=== PATIENT | male | born 1990 | race Caucasian/White ===

== ENCOUNTER → 2017-01-19 | Emergency (ER) | payer SELFPAY ==
[2017-01-19 21:10] VITALS: BP 165/72; PULSE 77; TEMP 98.6; BMI 25.7
--- NOTE | 2017-01-19 21:36 | PDOC ---
History of Present Illness - General History Source: Patient Exam Limitations: No Limitations - History of Present Illness Initial Comments: 01/19/17 21:52 26 year old male with no PMHx presents to the ED with left handed numbness for one day. Patient reports 2 night ago he was drunk and may have slept in an unusual position. He reports the numbness is only localized to his left pinky and fourth digit. He denies any trauma. Denies speech changes, focal weakness. No known allergies. <Cassi Avina - Last Filed: 01/19/17 21:52> - General History Source: Patient, Old Records Exam Limitations: No Limitations <ChazkjShaina - Last Filed: 01/19/17 21:53> - General Chief Complaint: Head/Neck problem Stated Complaint: LEFT HAND NUMBNESS Time Seen by Provider: 01/19/17 21:35 Past History <Cassi Avina - Last Filed: 01/19/17 21:52> - Immunization History Immunization Up to Date: Yes - Psycho/Social/Smoking Cessation Hx Anxiety: No Suicidal Ideation: No Smoking History: Never smoked Have you smoked in the past 12 months: Yes Number of Cigarettes Smoked Daily: 2 If you are a former smoker, when did you quit?: 1 MO AGO 'Breaking Loose' booklet given: 06/20/15 Hx Alcohol Use: No Drug/Substance Use Hx: No Substance Use Type: None <Shaina Glynn - Last Filed: 01/19/17 21:53> - Past Medical History Allergies/Adverse Reactions: Allergies Allergy/AdvReac Type Severity Reaction Status Date / Time No Known Allergies Allergy Verified 01/19/17 21:05 Home Medications: Ambulatory Orders Ciprofloxacin HCl [Cipro] 500 mg PO BID #14 tablet 05/12/16 Ibuprofen [Motrin -] 800 mg PO Q6H #30 tablet 05/12/16 Metronidazole 500 mg PO BID #14 tablet 05/12/16 Review of Systems - Review of Systems Able to Perform ROS?: Yes Comments:: 01/19/17 21:52 GENERAL/CONSTITUTIONAL: No fever or chills. No weakness. HEAD, EYES, EARS, NOSE AND THROAT: No change in vision. No ear pain or discharge. No sore throat. CARDIOVASCULAR: No chest pain or shortness of breath. RESPIRATORY: No cough, wheezing, or hemoptysis. GASTROINTESTINAL: No nausea, vomiting, diarrhea or constipation. GENITOURINARY: No dysuria, frequency, or change in urination. MUSCULOSKELETAL: No joint or muscle swelling or pain. No neck or back pain. SKIN: No rash NEUROLOGIC: (+) left handed numbness. No headache, vertigo, loss of consciousness, or change in strength. ENDOCRINE: No increased thirst. No abnormal weight change. HEMATOLOGIC/LYMPHATIC: No anemia, easy bleeding, or history of blood clots. ALLERGIC/IMMUNOLOGIC: No hives or skin allergy. <Cassi Avina - Last Filed: 01/19/17 21:52> *Physical Exam - Vital Signs Last Vital Signs Temp Pulse Resp BP Pulse Ox 98.6 F 77 18 165/72 99 01/19/17 21:05 01/19/17 21:05 01/19/17 21:01/19/17 21:01/19/17 21:05 - Physical Exam Comments: 01/19/17 21:52 GENERAL: Awake, alert, and fully oriented, in no acute distress HEAD: No signs of trauma EYES: PERRLA, EOMI, sclera anicteric, conjunctiva clear ENT: Auricles normal inspection, hearing grossly normal, nares patent, oropharynx clear without exudates. Moist mucosa NECK: Normal ROM, supple, no lymphadenopathy, JVD, or masses LUNGS: Breath sounds equal, clear to auscultation bilaterally. No wheezes, and no crackles HEART: Regular rate and rhythm, normal S1 and S2, no murmurs, rubs or gallops ABDOMEN: Soft, nontender, normoactive bowel sounds. No guarding, no rebound. No masses EXTREMITIES: Normal range of motion, no edema. No clubbing or cyanosis. No cords, erythema, or tenderness NEUROLOGICAL: Decreased sensation in pinky and fourth digit. Motor exam intact. No paraspinal tenderness. Cranial nerves II through XII grossly intact. Normal speech, normal gait SKIN: Warm, Dry, normal turgor, no rashes or lesions noted. <KailynCassi A - Last Filed: 01/19/17 21:52> - Vital Signs Last Vital Signs Temp Pulse Resp BP Pulse Ox 98.6 F 77 18 165/72 99 01/19/17 21:05 01/19/17 21:05 01/19/17 21:05 01/19/17 21:05 01/19/17 21:05 <Shaina Glynn - Last Filed: 01/19/17 21:53> Medical Decision Making - Medical Decision Making 01/19/17 21:47 26-year-old [id number] male with no significant past medical history presents to the emergency department with decreased sensation in the ulnar nerve distribution of the left hand after sleeping in the same position for an extended period of time Thursday overnight. Most likely diagnosis is cubital tunnel syndrome or an ulnar nerve palsy. Plan: 1. Self-limited and will likely resolve on its own 2. Discharge home 3. Follow-up with PCP 4. Return to the ED if symptoms persist, worsen, or new symptoms arise. <Shaina Glynn - Last Filed: 01/19/17 21:53> *DC/Admit/Observation/Transfer - Attestations Scribe Attestion: 01/19/17 21:53 Documentation prepared by Cassi Avina, acting as medical nurse for Shaina Glynn MD. <Csasi Avina - Last Filed: 01/19/17 21:52> - Discharge Dispostion Admit: No - Attestations Physician Attestion: 01/19/17 21:48 I, Dr. Shaina Glynn, attest that the scribes documentation that appears above has been prepared under my direction and personally reviewed by me in its entirety. I confirmed that the note above accurately reflects all work, treatment, procedures, and medical decision-making performed by me. <Shaina Glynn - Last Filed: 01/19/17 21:53> Diagnosis at time of Disposition: Cubital tunnel syndrome - Discharge Dispostion Disposition: HOME Condition at time of disposition: Stable - Patient Instructions Printed Discharge Instructions: Cubital Tunnel Syndrome Additional Instructions: You should follow-up with her primary care physician. If the symptoms persist, you should see a neurologist or a hand physician. Avoid pressure on the wrist area. You may return to the emergency department if your symptoms persist, worsen, or new symptoms arise.
== END | disposition home or self-care (01) ==
LOC: JER 20:54
DX: G56.22 Lesion of ulnar nerve, left upper limb (principal)
CPT/HCPCS: 99282-25

== ENCOUNTER 2020-10-24 06:26 | Emergency (ER) | payer SELFPAY ==
[2020-10-24 06:45] VITALS: BP 126/82; PULSE 91; TEMP 98.3; BMI 24.4
[2020-10-25 02:08] LABS: SARS-CoV-2 NAA Not Detected (Not Detected)
== END 2020-10-24 08:07 | disposition home or self-care (01) ==
LOC: JER 06:26
DX: R09.81 Nasal congestion (principal); Z11.52 Encounter for screening for COVID-19
CPT/HCPCS: 99283-25; C9803; U0003; U0005